=== PATIENT | female | born 1970 | race Caucasian/White ===

== ENCOUNTER 2023-11-13 14:00 | Emergency (ER) | payer OTHER, SELFPAY ==
[2023-11-13 14:10] VITALS: BP 114/66; PULSE 68; RESP 20; TEMP 36.8; O2SAT 100
--- NOTE | 2023-11-13 14:27 | ED.GENADULT ---
HPI - General Adult General Chief complaint: Extremity Injury, Upper Stated complaint: back of left arm pain Time Seen by Provider: 11/13/23 14:29 Source: patient, RN notes reviewed and old records reviewed Mode of arrival: ambulatory Limitations: no limitations History of Present Illness HPI narrative: 52 year female who presents to [facility] care with complaints of left arm pain up shoulder and to elbow since Tuesday. Patient reports that she had COVID 2 weeks ago with fevers and headache. Patient states then one week ago she states that she had fever and got dizzy and lowered herself to floor thinks she passed out when she woke up was laying on her left side. No increase pain with movement of left arm, pulses strong to left arm. Patient is smoker with no cardiac history. Patient reports some nausea she thinks is from the pain. Patient has not applied any ice or heat to her arm or taken any OTC pain medication. MD complaint: pain in upper left arm Onset (ago): day(s) (7 days) Severity scale (1-10): 7 Quality: aching Treatments prior to arrival: none Related Data Allergies Allergy/AdvReac Type Severity Reaction Status Date / Time nitrofurantoin Allergy Unknown Verified 05/08/15 16:15 Review of Systems Review of Systems: CONSTITUTIONAL: Denies fever, chills, or sweats. EYES: Denies visual changes, redness, or discharge. ENT: Denies rhinorrhea, congestion, sore throat, or otalgia. CARDIOVASCULAR: Denies chest pain, palpitations, or edema. RESPIRATORY: Denies cough or dyspnea. GASTROINTESTINAL: Denies abdominal pain, nausea, vomiting, or diarrhea. GENITOURINARY: Denies dysuria or hematuria. SKIN: Denies rash or itching. MUSCULOSKELETAL: Denies back pain, joint pain, reports left upper arm pain NEUROLOGIC: Denies headache, numbness, or weakness. PSYCHIATRIC: Denies anxiety or depression. All systems reviewed & are unremarkable except as noted in HPI and below PMFSH Past Medical History Medical History (Updated 11/14/23 @ 21:39 by Carlie Hidalgo NP) Peripheral vascular disease Surgical History Surgical History (Updated 11/14/23 @ 21:39 by Carlie Hidalgo NP) Previous section Family History Family History (Updated 05/08/15 @ 16:38 by DOCTOR UNKNOWN) Father Patient's father is Social History Social History (Updated 11/14/23 @ 21:40 by Carlie Hidalgo NP) Smoking packs per day: 0.5 Smoking cigarettes per day: 10.0 Years smoked: 25 Smoking pack-years: 12.50 Smoking status: Current every day smoker Tobacco type: cigarettes Alcohol intake: current Alcohol use details: social Substance use type: does not use Gender identity (if verbalized by the patient): Female Comments At time of signature, agree with nursing past medical, surgical, social and family history. There is no relevant family history pertinent to the presenting complaint Exam Narrative: GENERAL: Well-appearing, well-nourished, and in no acute distress. HEAD: Normocephalic, atraumatic. EYES: PERRLA and EOMI. ENT: Nares clear, no rhinorrhea or epistaxis. Mucous membranes moist. TM's normal throat pink with swelling NECK: Supple.no lymphadenopathy CHEST: Clear to auscultation. No respiratory distress.no cough noted denie any shortness of breath SAO2 100% on room air HEART: Regular rate and rhythm. No murmur heard. Normal peripheral pulses. ABDOMEN: Soft, nontender, nondistended, normal active bowel sounds. EXTREMITIES: Normal range of motion. No edema.Pain left upper arm Circulation, sensation and mobility intact skin warm and dry pink nail beds michelle briskly, denies any tingling or numbness to left arm SKIN: Warm, dry, no rash. NEURO: No focal deficits. Alert and oriented x3. Course Course Emergency Course: Patient is aware of diagnosis, understands and agrees to treatment plan.? Anticipatory guidance given.? Patient agrees to follow-up as directed and is aware of reasons to
--- NOTE | 2023-11-13 14:34 | ECG_ITS ---
Measurements Intervals [place] Rate: 62 P: -20 [place]: 160 QRS: -29 QRSD: 84 T: -30 QT: 421 QTc: 431 Interpretive Statements SINUS RHYTHM LOW QRS VOLTAGE OTHERWISE WITHIN NORMAL LIMITS NO PREVIOUS ECG AVAILABLE FOR COMPARISON Electronically Signed On 11-14-2023 18:15:42 [employer] by Wesley Darnell M.D.
== END 2023-11-13 15:24 | disposition home or self-care (01) ==
PROVIDERS: Emergency Provider Registered Nurse; PCP Family Medicine
DX: M75.22 Bicipital tendinitis, left shoulder (principal); F17.210 Nicotine dependence, cigarettes, uncomplicated; I73.9 Peripheral vascular disease, unspecified
CPT/HCPCS: 93005; 99203; G0463